=== PATIENT | female | born 1975 | race Caucasian/White ===

== ENCOUNTER 2018-08-29 18:29 | Emergency (ER) | payer MEDICAID ==
[~2018-08-29] VITALS: Ht 160 cm; Wt 71.0 kg
[~2018-08-29 18:29] MED LIST: CLIN150C8 PO; HYDR-3686 PO; IBUP-1986 PO; METH-360 PO; PERM60CR19 TP
[2018-08-29 18:35] VITALS: BP 124/53
[2018-08-29] MEDS ORDERED: CLIN300C85 PO (19:07)
== END 2018-08-29 19:16 | disposition home or self-care (01) ==
LOC: ER 18:30
DX: K08.89 Other specified disorders of teeth and supporting structures (principal); R68.84 Jaw pain; F12.90 Cannabis use, unspecified, uncomplicated; Z90.49 Acquired absence of other specified parts of digestive tract; Z98.51 Tubal ligation status; Z98.890 Other specified postprocedural states; Z88.1 Allergy status to other antibiotic agents; Z88.5 Allergy status to narcotic agent; Z79.2 Long term (current) use of antibiotics; Z79.899 Other long term (current) drug therapy
CPT/HCPCS: 99283

== ENCOUNTER 2018-11-05 04:18 | Emergency (ER) | payer MEDICAID ==
[~2018-11-05] VITALS: Ht 160 cm; Wt 62.6 kg
[~2018-11-05 04:18] MED LIST changes: +CLIN300C85 PO
[2018-11-05 04:24] VITALS: BP 148/72
[2018-11-05] MEDS ORDERED: clindamycin 150mg capsule PO ONE (04:35)
[2018-11-05] MEDS ORDERED: LIDOcaine Viscous 15ml cup MM PRN (04:35)
[2018-11-05] MEDS ORDERED: acetaminophen 325mg tablet PO ONE (04:35)
[2018-11-05] MEDS ORDERED: fluconazole 150mg tablet PO ONE (04:35)
[2018-11-05] MEDS ORDERED: HYDR-3965 PO (04:39)
[2018-11-05] MEDS ORDERED: ACET-812 PO (04:39)
[2018-11-05] MEDS ORDERED: CLIN150C8 PO (04:39)
[2018-11-05] MEDS ORDERED: FLUC150T66 PO (04:39)
== END 2018-11-05 05:00 | disposition home or self-care (01) ==
LOC: ER 04:19
DX: J02.9 Acute pharyngitis, unspecified (principal); F12.90 Cannabis use, unspecified, uncomplicated; Z90.49 Acquired absence of other specified parts of digestive tract; Z98.51 Tubal ligation status; Z88.6 Allergy status to analgesic agent; Z88.1 Allergy status to other antibiotic agents
CPT/HCPCS: 99284

== ENCOUNTER 2019-03-26 15:35 | Emergency (ER) | payer MEDICAID ==
[~2019-03-26] VITALS: Ht 160 cm; Wt 68.2 kg
[~2019-03-26 15:35] MED LIST changes: +ACET-812 PO; +CLIN-96 PO; -CLIN300C85 PO
[2019-03-26 15:54] VITALS: BP 142/84
[2019-03-26] MEDS ORDERED: SULF1TAB49 PO (16:44)
== END 2019-03-26 17:40 | disposition home or self-care (01) ==
LOC: ER 15:36
DX: N76.0 Acute vaginitis (principal); F12.90 Cannabis use, unspecified, uncomplicated; Z90.49 Acquired absence of other specified parts of digestive tract; Z98.51 Tubal ligation status; Z98.890 Other specified postprocedural states; Z88.1 Allergy status to other antibiotic agents; Z88.5 Allergy status to narcotic agent; Z79.2 Long term (current) use of antibiotics; Z79.899 Other long term (current) drug therapy
CPT/HCPCS: 99283

== ENCOUNTER 2022-09-30 07:00 | Outpatient (CLI) | payer MEDICAID ==
[~2022-09-30] VITALS: Ht 160 cm; Wt 57.6 kg
[~2022-09-30 07:00] MED LIST changes: -CLIN-96 PO; +CLIN-97 PO
[2022-09-30] MEDS ORDERED: albuterol 2.5 MG/3 ML nebule NEB ONE (07:47)
== END 2022-09-30 23:59 | disposition home or self-care (01) ==
LOC: RT 07:00
PROVIDERS: ATTEND Family Medicine
DX: R94.2 Abnormal results of pulmonary function studies (principal); J44.9 Chronic obstructive pulmonary disease, unspecified; U09.9 Post COVID-19 condition, unspecified; F17.200 Nicotine dependence, unspecified, uncomplicated
CPT/HCPCS: 94060; 94760

== ENCOUNTER 2024-12-14 09:02 | Emergency (ER) | payer MEDICAID ==
[~2024-12-14] VITALS: Ht 160 cm; Wt 59.5 kg
[~2024-12-14 09:02] MED LIST changes: +CLIN-214 PO; -CLIN150C8 PO; -PERM60CR19 TP; +PERM60CR27 TP
[2024-12-14 10:36] LABS: BILIRUBIN,URINE NEGATIVE (Neg); CLARITY,URINE CLEAR (Clear); COLOR,URINE YELLOW (Yellow); GLUCOSE, URINE NEGATIVE (Neg); KETONES,URINE NEGATIVE (Neg); LEUKOCYTE ESTERASE ,URINE SMALL (Neg); NITRITES, URINE NEGATIVE (Neg); OCCULT BLOOD,URINE SMALL (Neg); PROTEIN,URINE NEGATIVE (Neg); UROBILINOGEN,URINE 0.2 E.U/dL (0.2-1.0)
[2024-12-14 10:39] LABS: URINE HCG NEGATIVE (NEG)
[2024-12-14 10:42] LABS: UA COLLECTION TYPE CLN CATCH MIDSTREAM
[2024-12-14 10:47] LABS: BACTERIA,URINE FEW /HPF (Neg); SQUAMOUS EPITHELIAL CELL,UR FEW /LPF (FEW)
[2024-12-14 10:50] LABS: BASOPHILS % (AUTO) 0.5 % (0-1); EOSINOPHILS % (AUTO) 0.8 % (0-6); HEMATOCRIT 47.1 % (35.0-45.0); HEMOGLOBIN 15.9 g/dl (12.0-16.0); LYMPHOCYTES # (AUTO) 1.1 X10'3 (1.1-4.8); LYMPHOCYTES % (AUTO) 20.9 % (21-51); MEAN CORPUSCULAR HEMOGLOBIN 31.5 PG (27.0-31.0); MEAN CORPUSCULAR HGB CONC 33.7 g/dL (33.0-36.5); MEAN CORPUSCULAR VOLUME 93.4 FL (78-98); MEAN PLATELET VOLUME 9.2 FL (7.4-10.4); MONOCYTES # (AUTO) 0.6 X10'3 (0-0.9); MONOCYTES % (AUTO) 10.9 % (2-12); NEUTROPHILS # (AUTO) 3.7 X10'3 (1.8-7.7); NEUTROPHILS % (AUTO) 66.9 % (42-75); PLATELET COUNT 243 X10'3 (140-440); RED BLOOD COUNT 5.04 X10'6 (4.20-5.60); RED CELL DISTRIBUTION WIDTH 13.6 % (11.5-14.5); WHITE BLOOD COUNT 5.5 X10'3 (4.5-11.0)
[2024-12-14 11:06] LABS: ALANINE AMINOTRANSFERASE 20 U/L (12-78); ALBUMIN 3.9 G/DL (3.4-5.0); ALBUMIN/GLOBULIN RATIO 1.2 (1.1-1.5); ALKALINE PHOSPHATASE 76 IU/L (46-116); ANION GAP 7 (8-16); ASPARTATE AMINO TRANSFERASE 18 U/L (10-37); BILIRUBIN,TOTAL 0.8 MG/DL (0.1-1.0); BLOOD UREA NITROGEN 8 MG/DL (7-18); BUN/CREATININE RATIO 12.9 (10.0-20.0); CALCIUM 8.7 MG/DL (8.5-10.1); CHLORIDE 103 MMOL/L (99-107); CREATININE 0.62 MG/DL (0.40-0.90); GLUCOSE 87 MG/DL (70-104); LIPASE 24 U/L (16-77); POTASSIUM 4.1 MMOL/L (3.5-5.1); SODIUM 139 MMOL/L (135-145); TOTAL CARBON DIOXIDE 28.7 MMOL/L (24-32); TOTAL PROTEIN 7.2 G/DL (6.4-8.2); eCRCL 93 ML/MIN; eGFR > 90 ML/MIN
[2024-12-14] MEDS: ketorolac trometh 30MG/ML vial 30 MG/ML VIAL IM ONE (13:24)
[2024-12-14] MEDS ORDERED: HYDR-3965 PO (13:25)
[2024-12-14] MEDS ORDERED: NITR100C6 PO (13:25)
[2024-12-14 13:47] VITALS: BP 134/80; PULSE 100; RESP 18; TEMP 98.8; O2SAT 99
== END 2024-12-14 13:48 | disposition home or self-care (01) ==
LOC: ER 09:02
DX: N39.0 Urinary tract infection, site not specified (principal); F12.90 Cannabis use, unspecified, uncomplicated; Z88.0 Allergy status to penicillin; Z88.5 Allergy status to narcotic agent; Z88.1 Allergy status to other antibiotic agents; Z90.49 Acquired absence of other specified parts of digestive tract; Z98.51 Tubal ligation status
CPT/HCPCS: 36415; 74176; 80053; 81001; 81025; 83690; 85025; 87088; 96372; 99285; J1885